=== PATIENT | male | born 1990 | race Caucasian/White ===

== ENCOUNTER 2016-11-23 09:20 | Emergency (ER) | payer MEDICAID ==
[~2016-11-23] VITALS: Ht 190.5 cm; Wt 82.5 kg
[2016-11-23] MEDS ORDERED: SODIUM CHLORIDE 0.9% 1,000 ML IV ONE (09:48)
[2016-11-23] MEDS ORDERED: SODIUM CHLORIDE 0.9% 1,000ML IVBOLUS ONE (10:00)
[2016-11-23] MEDS ORDERED: ONDANSETRON 2MG/ML, 2ML IVPush ONE (10:00)
[2016-11-23] MEDS ORDERED: LORazepam 2 MG/ML, 1ML IVPush ONE (10:00)
[2016-11-23] MEDS ORDERED: ONDANSETRON 2MG/ML, 2ML ONE (10:26)
[2016-11-23] MEDS ORDERED: LORazepam 2 MG/ML, 1ML ONE (10:27)
[2016-11-23 10:49] LABS: HEMOGLOBIN 14.5 g/dL (13.7-18.0)
[2016-11-23 11:02] LABS: BLOOD UREA NITROGEN 9 mg/dL (7-18)
[2016-11-23 11:07] LABS: ASPARTATE AMINO TRANSFERASE 34 U/L (15-37)
[2016-11-23 11:22] LABS: DAU SCREEN DISCLAIMER
[2016-11-23 11:38] LABS: PATH.CAST-FLAG NOT PRESENT; SPERM-FLAG NOT PRESENT; SRC-FLAG NOT PRESENT; XTAL-FLAG NOT PRESENT; YLC-FLAG NOT PRESENT
[2016-11-23 12:20] VITALS: BP 124/88
== END 2016-11-23 12:25 | disposition home or self-care (01) ==
LOC: ED 11:44
DX: F15.10 Other stimulant abuse, uncomplicated (principal); F12.10 Cannabis abuse, uncomplicated; F11.10 Opioid abuse, uncomplicated; F19.94 Other psychoactive substance use, unspecified with psychoactive substance-induced mood disorder; F17.200 Nicotine dependence, unspecified, uncomplicated
CPT/HCPCS: 36415; 70450; 71010; 80053; 80307; 81001; 82550; 85025; 93005; 96361; 96374; 96375; 99285; J2060; J2405; J7030

== ENCOUNTER 2017-05-22 09:56 | Emergency (ER) | payer MEDICAID ==
[~2017-05-22] VITALS: Ht 190.5 cm; Wt 73.1 kg
[2017-05-22 09:57] VITALS: BP 117/76
== END 2017-05-22 10:52 | disposition home or self-care (01) ==
LOC: ED 10:45
DX: L03.811 Cellulitis of head [any part, except face] (principal); L03.116 Cellulitis of left lower limb; L03.115 Cellulitis of right lower limb; L02.92 Furuncle, unspecified
CPT/HCPCS: 99283

== ENCOUNTER 2017-07-15 13:10 | Emergency (ER) | payer MEDICAID ==
[~2017-07-15] VITALS: Ht 177.8 cm; Wt 79.0 kg
[2017-07-15] MEDS ORDERED: SODIUM CHLORIDE 0.9% 1,000 ML IV ONE (13:17)
[2017-07-15] MEDS ORDERED: PLEASE ENTER HEIGHT AND WEIGHT MC SCH (13:30)
[2017-07-15] MEDS ORDERED: SODIUM CHLORIDE FLUSH 10ML SYR IVF ONE (13:30)
[2017-07-15] MEDS ORDERED: KETOROLAC 30 MG/1 ML IVPush ONE (13:30)
[2017-07-15] MEDS ORDERED: KETOROLAC 30 MG/1 ML ONE (13:35)
[2017-07-15 13:36] LABS: HEMATOCRIT 40.9 % (39.2-51.8); WHITE BLOOD COUNT 6.9 x10^3/uL (3.4-10)
[2017-07-15 13:48] LABS: ASPARTATE AMINO TRANSFERASE 23 U/L (15-37); BLOOD UREA NITROGEN 14 mg/dL (7-18)
[2017-07-15 15:45] VITALS: BP 125/79
[2017-07-15] MEDS ORDERED: OXYcodone/APAP 10/325MG TABLET ONE (15:47)
[2017-07-15] MEDS ORDERED: OXYcodone/APAP 10/325MG TABLET PO ONE (16:00)
== END 2017-07-15 15:49 | disposition home or self-care (01) ==
LOC: ED 15:42
DX: N20.1 Calculus of ureter (principal); N23 Unspecified renal colic; F19.10 Other psychoactive substance abuse, uncomplicated
CPT/HCPCS: 36415; 74176; 80053; 81001; 83690; 85025; 87086; 96361; 96374; 99285; J1885; J7030

== ENCOUNTER 2017-07-27 15:59 | Emergency (ER) | payer MEDICAID ==
[~2017-07-27] VITALS: Ht 188 cm; Wt 79.8 kg
[2017-07-27 16:01] VITALS: BP 130/75
== END 2017-07-27 16:30 | disposition home or self-care (01) ==
LOC: ED 16:23
DX: L02.414 Cutaneous abscess of left upper limb (principal); L01.01 Non-bullous impetigo
CPT/HCPCS: 99283

== ENCOUNTER 2017-08-24 02:27 | Emergency (ER) | payer MEDICAID ==
[~2017-08-24] VITALS: Ht 190.5 cm; Wt 77.3 kg
[2017-08-24] MEDS ORDERED: ONDANSETRON ODT 4 MG ONE (03:49)
[2017-08-24] MEDS ORDERED: ONDANSETRON ODT 4 MG PO ONE (04:00)
[2017-08-24 04:19] LABS: MEAN CORPUSCULAR HEMOGLOBIN 31.4 pg (27.5-34.5); MEAN CORPUSCULAR HGB CONC 34.2 g/dL (33.2-36.2); MEAN CORPUSCULAR VOLUME 91.8 fL (81-97); MEAN PLATELET VOLUME 7.7 fL (7.4-10.4); PLATELET COUNT 199 x10^3/uL (130-400); RED BLOOD COUNT 4.09 x10^6/uL (4.38-5.82); RED CELL DISTRIBUTION WIDTH 12.6 % (9.4-14.8)
[2017-08-24 04:21] LABS: ALANINE AMINOTRANSFERASE 31 U/L (12-78); ALBUMIN 3.3 g/dL (3.4-5.0); ANION GAP 7 mmol/L (5-15); CALCIUM 8.8 mg/dL (8.5-10.1); CHLORIDE 99 mmol/L (98-107); CREATININE 0.73 mg/dL (0.7-1.3)
[2017-08-24 04:23] LABS: ALKALINE PHOSPHATASE 103 U/L (45-117); TOTAL PROTEIN 7.6 g/dL (6.4-8.2)
[2017-08-24 04:38] LABS: BASOPHILS # (AUTO) 0.02 x10^3/uL (0-0.1); BASOPHILS % (AUTO) 0 % (0-1); EOSINOPHILS # (AUTO) 0.02 x10^3/uL (0-0.4); EOSINOPHILS % (AUTO) 0 % (1-7); LYMPHOCYTES # (AUTO) 1.26 x10^3/uL (1-3.4); LYMPHOCYTES % (AUTO) 9 % (22-44); MD SCAN; MONOCYTES # (AUTO) 1.48 x10^3/uL (0.2-0.8); MONOCYTES % (AUTO) 11 % (2-9); NEUTROPHILS # (AUTO) 11.32 x10^3/uL (1.8-6.8); NEUTROPHILS % (AUTO) 80 % (42-75)
[2017-08-24] MEDS ORDERED: CEFTRIAXONE PMX 1GM/50ML 50 ML IV ONE (05:00)
[2017-08-24] MEDS ORDERED: SODIUM CHLORIDE 0.9% 1,000ML IVBOLUS ONE (05:00)
[2017-08-24] MEDS ORDERED: AZITHROMYCIN 500 MG in SODIUM CHLORIDE 0.9% 250 ML IV ONE (05:00)
[2017-08-24] MEDS ORDERED: KETOROLAC 30 MG/1 ML ONE (05:20)
[2017-08-24] MEDS ORDERED: KETOROLAC 30 MG/1 ML IVPush ONE (05:30)
[2017-08-24] MEDS ORDERED: CEFTRIAXONE PMX 1GM/50ML 50 ML ONE (05:36)
[2017-08-24 06:08] VITALS: BP 119/75
[2017-08-24] MEDS ORDERED: MORPHINE SULFATE 4 MG/ML, 1ML ONE (06:13)
[2017-08-24] MEDS ORDERED: OMNIPAQUE 350 MG/ML, 100ML BOTTLE ONE (06:17)
[2017-08-24] MEDS ORDERED: MORPHINE SULFATE 4 MG/ML, 1ML IVPush PRN (06:30)
== END 2017-08-24 07:13 | disposition home or self-care (01) ==
LOC: ED 03:36
DX: R10.31 Right lower quadrant pain (principal); R11.2 Nausea with vomiting, unspecified; J15.9 Unspecified bacterial pneumonia
CPT/HCPCS: 36415; 71046; 74177; 80053; 85025; 87040; 93005; 96365; 96367; 96375; 99285; J0456; J0696; J1885; J7030; J7050; Q0162; Q9967

== ENCOUNTER 2018-03-18 09:38 | Emergency (ER) | payer SELFPAY ==
[~2018-03-18] VITALS: Ht 190.5 cm; Wt 88.5 kg
[2018-03-18 09:43] VITALS: BP 135/92
[2018-03-18] MEDS ORDERED: IBUPROFEN 200 MG TABLET PO ONE (10:30)
[2018-03-18] MEDS ORDERED: IBUPROFEN 200 MG TABLET ONE (10:35)
== END 2018-03-18 11:23 | disposition home or self-care (01) ==
LOC: ED 10:20
DX: S83.511A Sprain of anterior cruciate ligament of right knee, initial encounter (principal); F15.10 Other stimulant abuse, uncomplicated; F12.10 Cannabis abuse, uncomplicated; W01.0XXA Fall on same level from slipping, tripping and stumbling without subsequent striking against object, initial encounter; Y93.89 Activity, other specified; Y92.89 Other specified places as the place of occurrence of the external cause; Y99.8 Other external cause status
CPT/HCPCS: 99284

== ENCOUNTER 2018-03-19 23:17 | Emergency (ER) | payer SELFPAY ==
[~2018-03-19] VITALS: Ht 190.5 cm; Wt 90.1 kg
[2018-03-19] MEDS ORDERED: NALOXONE 0.4 MG/ML, 1ML ONE (23:29)
[2018-03-20 03:13] VITALS: BP 109/75
== END 2018-03-20 04:32 | disposition home or self-care (01) ==
LOC: ED 23:50
DX: T40.1X1A Poisoning by heroin, accidental (unintentional), initial encounter (principal); F11.10 Opioid abuse, uncomplicated
CPT/HCPCS: 99283

== ENCOUNTER 2018-03-21 18:54 | Emergency (ER) | payer MEDICAID ==
[~2018-03-21] VITALS: Ht 190.5 cm; Wt 89.4 kg
[2018-03-21 19:00] VITALS: BP 154/96
== END 2018-03-21 20:44 | disposition home or self-care (01) ==
LOC: ED 20:43
DX: L03.90 Cellulitis, unspecified (principal)
CPT/HCPCS: 99283

== ENCOUNTER 2019-11-25 13:43 | Emergency (ER) | payer SELFPAY ==
[~2019-11-25] VITALS: Ht 190.5 cm; Wt 82.6 kg
[2019-11-25 13:46] VITALS: BP 137/68
== END 2019-11-25 14:45 | disposition home or self-care (01) ==
LOC: ED 14:07
DX: B34.9 Viral infection, unspecified (principal); F17.200 Nicotine dependence, unspecified, uncomplicated
CPT/HCPCS: 71045; 99283

== ENCOUNTER 2019-12-09 07:22 | Emergency (ER) | payer SELFPAY ==
[~2019-12-09] VITALS: Ht 190.5 cm; Wt 73.0 kg
--- NOTE | 2019-12-09 07:45 | NUR ---
FIRST CONTACT WITH PT. PT REQUESTING A WORK NOTE AFTER QUARANTINING SELF FOR TWO WEEKS AND ASYMPTOMATIC FOR ONE WEEK. PREVIOUS SYMPTOMS: FEVER, COUGH AND BODY ACHES. PT'S AOX4. RESPS EVEN AND UNLABORED.
[2019-12-09 07:55] VITALS: BP 131/84
--- NOTE | 2019-12-09 07:57 | NUR ---
Patient given discharge instructions and they have confirmed that they understand the instructions. Patient ambulatory with steady gait.
== END 2019-12-09 07:58 | disposition home or self-care (01) ==
LOC: ED 07:46
DX: Z00.00 Encounter for general adult medical examination without abnormal findings (principal)
CPT/HCPCS: 99281

== ENCOUNTER 2020-03-16 09:05 | Emergency (ER) | payer MEDICAID ==
[~2020-03-16] VITALS: Ht 188 cm; Wt 69.8 kg
[2020-03-16 09:09] VITALS: BP 113/70
--- NOTE | 2020-03-16 10:12 | NUR ---
BONE WAX GIVEN TO PT PER LEIF RIDLEY'S INSTRUCTIONS, PT GIVEN DC INSTRUCTIONS AND SCRIPT, EDUCATED REGARDING RX FOR AMOXICILLIN AND NAPROXEN. PT A&O, RESPS EVENA ND UNLABORED, NADN. PT AMBULATORY TO DC DESK WITH STEADY GAIT. NADN AT DC.
== END 2020-03-16 10:10 | disposition home or self-care (01) ==
LOC: ED 10:00
DX: K08.89 Other specified disorders of teeth and supporting structures (principal); F17.200 Nicotine dependence, unspecified, uncomplicated
CPT/HCPCS: 99283